=== PATIENT | female | born 1990 | race Caucasian/White ===

== ENCOUNTER 2019-07-26 12:57 | Outpatient (CLI) | payer OTHER ==
[2019-07-26 13:44] LABS: APPEARANCE,URINE CLOUDY; BILIRUBIN,URINE NEGATIVE (NEGATIVE); COLOR,URINE YELLOW; GLUCOSE, URINE 50 mg/dL (NEGATIVE); KETONES,URINE NEGATIVE (NEGATIVE); LEUKOCYTE ESTERASE,URINE NEGATIVE (NEGATIVE); NITRITE,URINE NEGATIVE (NEGATIVE); PROTEIN,URINE 30 mg/dL (NEGATIVE); URINE SPECIFIC GRAVITY 1.027; UROBILINOGEN,URINE NEGATIVE mg/dL (<2.0)
[2019-07-26 13:47] LABS: URINE AMPHETAMINES SCREEN NEGATIVE; URINE BARBITURATES SCREEN NEGATIVE; URINE BENZODIAZEPINES SCREEN NEGATIVE; URINE COCAINE SCREEN NEGATIVE; URINE MARIJUANA (THC) SCREEN NEGATIVE; URINE METHADONE SCREEN NEGATIVE; URINE PHENCYCLIDINE SCREEN NEGATIVE
== END 2019-07-26 13:43 | disposition home or self-care (01) ==
LOC: LC 12:57
PROVIDERS: ATTEND Obstetrics & Gynecology
PROC: 4A1HXCZ Monitoring of Products of Conception, Cardiac Rate, External Approach (ICD-10-PCS; principal; 2019-07-26)
DX: O36.8120 Decreased fetal movements, second trimester, not applicable or unspecified (principal); Z3A.22 22 weeks gestation of pregnancy
CPT/HCPCS: 80307; 81001

== ENCOUNTER 2019-11-24 17:54 | Inpatient (IN) | payer OTHER ==
[2019-11-24] MEDS ORDERED: OXYTOCIN/NORMAL SALINE 20 UNIT/1,000 ML RTUINJ IV PRN (18:34)
[2019-11-24] MEDS ORDERED: DINOPROSTONE 10 MG VAGINAL INSERT.SR PV PRN (18:34)
[2019-11-24 18:56] LABS: ABSOLUTE EOSINOPHILS # (AUTO) 0.1 10^3/uL (0.0-0.6); ABSOLUTE LYMPHOCYTES (AUTO) 1.5 10^3/uL (0.5-4.7); ABSOLUTE MONOCYTES (AUTO) 0.8 10^3/uL (0.1-1.4); ABSOLUTE NEUT (AUTO) 8.2 10^3/uL (1.7-8.2); BASOPHILS % (AUTO) 0.3 % (0-2); EOSINOPHILS % (AUTO) 0.5 % (0-6); HEMATOCRIT 35.6 % (36.0-47.0); HEMOGLOBIN 12.7 g/dL (12.0-15.5); LYMPHOCYTES % (AUTO) 14.4 % (13-45); MEAN CORPUSCULAR HEMOGLOBIN 34.4 pg (27.0-33.4); MEAN CORPUSCULAR HGB CONC 35.7 g/dL (32.0-36.0); MEAN CORPUSCULAR VOLUME 96 fl (80-97); MONOCYTES % (AUTO) 7.8 % (3-13); PLATELET COUNT 199 10^3/uL (150-450); RED CELL DISTRIBUTION WIDTH 12.9 % (11.5-14.0); TOTAL CELLS COUNTED % (AUTO) 100 %; WHITE BLOOD COUNT 10.7 10^3/uL (4.0-10.5)
[2019-11-24] MEDS ORDERED: OXYTOCIN 10 UNIT/ML VIAL ONE (19:30)
[2019-11-24] MEDS ORDERED: MISOPROSTOL 0.2 MG TABLET ONE (19:30)
[2019-11-24] MEDS ORDERED: OXYTOCIN/NORMAL SALINE 20 UNIT/1,000 ML RTUINJ ONE (19:30)
[2019-11-24] MEDS ORDERED: DINOPROSTONE 10 MG VAGINAL INSERT.SR ONE (19:30)
[2019-11-24] MEDS ORDERED: LIDOCAINE 1% INJ-PF (10 MG/ML) 30 ML SDV ONE (19:30)
[2019-11-24] MEDS ORDERED: ZOLPIDEM TARTRATE 5 MG TABLET ONE (21:49)
[2019-11-24 22:56] LABS: APPEARANCE,URINE CLOUDY; BILIRUBIN,URINE NEGATIVE (NEGATIVE); COLOR,URINE YELLOW; GLUCOSE, URINE >=500 mg/dL (NEGATIVE); KETONES,URINE NEGATIVE (NEGATIVE); LEUKOCYTE ESTERASE,URINE TRACE (NEGATIVE); NITRITE,URINE NEGATIVE (NEGATIVE); PROTEIN,URINE 30 mg/dL (NEGATIVE); URINE SPECIFIC GRAVITY 1.022; UROBILINOGEN,URINE NEGATIVE mg/dL (<2.0)
[2019-11-24 23:23] LABS: URINE AMPHETAMINES SCREEN NEGATIVE; URINE BARBITURATES SCREEN NEGATIVE; URINE METHADONE SCREEN NEGATIVE; URINE PHENCYCLIDINE SCREEN NEGATIVE
[2019-11-24 23:24] LABS: URINE COCAINE SCREEN NEGATIVE
[2019-11-24 23:26] LABS: URINE BENZODIAZEPINES SCREEN NEGATIVE
[2019-11-24 23:37] LABS: URINE MARIJUANA (THC) SCREEN NEGATIVE
[2019-11-25] MEDS ORDERED: OXYTOCIN/NORMAL SALINE 20 UNIT/1,000 ML RTUINJ IV PRN ×2 (09:09→23:03)
--- NOTE | 2019-11-25 14:18 | Admission Physical ---
Datetime Report Generated by CPN: 11/25/2019 14:18 CURRENT ADMISSION Chief Complaint: Scheduled Induction of Labor Indication for Induction: Other Indication for Induction- Other: elective Admit Impression : Term, Intrauterine ; No Active Labor Admit Plan: Admit to Unit; Initiate Labor Induction Protocol ALLERGIES Medication Allergies: No Medication Allergies: No Known Allergies (11/24/2019) Latex: No Latex Allergies Food Allergies: none Environmental Allergies: none OBSTETRICAL HISTORY EDC: 11/24/2019 00:00 : 1 Para: 0 Term: 0 : 0 SAB: 0 IAB: 0 Ectopic: 0 Livin Cesareans: 0 VBACs: 0 Multiple Births: 0 Gestational Diabetes: No Rh Sensitization: No Incompetent Cervix: No GHISLAINE: No Infertility: No ART Treatment: No Uterine Anomaly: No IUGR: No Hx Previous C/S: No Macrosomia: No Hx Loss/Stillborn: No PIH: No Hx : No Placenta Previa/Abruption: No Depression/PP Depression: No PTL/PROM: No Post Hemorrhage: No Current Procedures: Ultrasound Obstetrical History Comments: G1-Current SEE RECORDS Alcohol: Yes Alcohol Frequency: Occasional Alcohol Comments: Prior to Marijuana : No Cocaine: No Other Illicit Drugs: No Cigarettes: Never Smoker. [id number] MEDICAL HISTORY Diabetes: No Blood Transfusion: No Pulmonary Disease (Asthma, TB): No Breast Disease: No Hypertension: No Supervisor Telephone Answering Service Surgery: No Heart Disease: No Hosp/Surgery: No Autoimmune Disorder: No Anesthetic Complications: No Kidney Disease: No Abnormal Pap Smear: No Neuro/Epilepsy: No Psychiatric Disorders: No Other Medical Diseases: No Hepatitis/Liver Disease: No Significant Family History: No Varicosities/Phlebitis: No Trauma/Violence : No Thyroid Dysfunction: No INFECTIOUS HISTORY Gonorrhea: No Genital Herpes: No Chlamydia: No Tuberculosis: No Syphilis: No Hepatitis: No HIV/AIDS Exposure: No Rash or Viral Illness: No HPV: No PHYSICAL EXAM General: Normal HEENT: Normal Neurologic: Normal Thyroid: Deferred Heart: Normal Lungs: Normal Breast: Deferred Back: Normal Abdomen: Normal Genitourinary Exam: Normal Extremities: Normal DTRs: Deferred Pelvic Type: Adequate Vital Signs: Reviewed VAGINAL EXAM Dilatation: 0 Effacement: 0 Station: -3 Contraction Comments: q2-5 mins MEMBRANES Membranes: Intact FETUS A EGA: 40.1 Monitoring: External US FHR- Baseline: 130 Variability: Moderate 6-25bpm Accelerations: 15X15 Decelerations: None FHR Category: Category I Estimated Weight (gm): 3200 Presentation: Vertex Admit Comment: at 40w1d admitted for IOL. s/p cervidil, now on pitocin without painful contrations now. GBS negative. called out thinking her water broke. P:actim prom, comgt with dr araya. PLANS FOR LABOR AND DELIVERY Labor and Delivery: Plan Pain Management: Epidural Feeding Preference: Breast Benefit of Breast Feed Discussed: Yes Circumcision: Yes INFORMED CONSENT Assignment: Destiney Araya MD Signature: with User ID: [email or web address] : with User ID: [email or web address]
[2019-11-25] MEDS ORDERED: PROMETHAZINE HCL INJ 25 MG/1 ML VIAL IV ONE (18:04)
[2019-11-25] MEDS ORDERED: MORPHINE SULFATE 10 MG/ML INJ IV ONE (18:04)
[2019-11-25] MEDS ORDERED: MORPHINE SULFATE 10 MG/ML INJ ONE (18:08)
[2019-11-25] MEDS ORDERED: PROMETHAZINE HCL INJ 25 MG/1 ML VIAL ONE (18:08)
[2019-11-25] MEDS: RINGERS SOLUTION,LACTATED 1,000 ML IV PRN ×2 (18:16→23:19)
[2019-11-25] MEDS: ZOLPIDEM TARTRATE 5 MG TABLET PO SCH (18:27)
[2019-11-25] MEDS ORDERED: FENTANYL/BUPIVACAINE/NS/PF 300 MCG/150 ML RTUINJ EPI ONE (20:07)
[2019-11-25] MEDS ORDERED: BUPIVACAINE HCL 0.25 % INJ/PF (2.5 MG/1 ML) 30 ML VIAL ONE (20:07)
[2019-11-25] MEDS ORDERED: EPHEDRINE SULFATE INJ 50 MG/1 ML AMPULE ONE (20:07)
[2019-11-25] MEDS ORDERED: FENTANYL CITRATE INJ/PF 100 MCG/2 ML AMPUL ONE (20:08)
[2019-11-25] MEDS ORDERED: CALCIUM CARBONATE 500 MG TAB.CHEW PO ONE (23:02)
[2019-11-26] MEDS ORDERED: OXYTOCIN/NORMAL SALINE 20 UNIT/1,000 ML RTUINJ ONE ×2 (03:50→21:47)
[2019-11-26] MEDS ORDERED: OXYTOCIN/NORMAL SALINE 20 UNIT/1,000 ML RTUINJ IV PRN (04:12)
[2019-11-26] MEDS: ZOLPIDEM TARTRATE 5 MG TABLET PO SCH (05:49)
[2019-11-26] MEDS ORDERED: PENICILLIN G-K 5 MILLION UNIT VIAL ONE ×3 (05:50→21:49)
[2019-11-26] MEDS ORDERED: PENICILLIN G POTASSIUM 5,000,000 UNIT in DEXTROSE 5%-WATER 100 ML IV ONE (06:00)
[2019-11-26] MEDS ORDERED: FENTANYL/BUPIVACAINE/NS/PF 300 MCG/150 ML RTUINJ EPI ONE ×2 (06:34→21:43)
[2019-11-26] MEDS ORDERED: DIPHENHYDRAMINE HCL 50 MG/ML VIAL ONE (08:02)
[2019-11-26] MEDS ORDERED: CALCIUM CARBONATE 500 MG TAB.CHEW PO ONE (08:11)
[2019-11-26] MEDS ORDERED: DIPHENHYDRAMINE HCL 50 MG/ML VIAL IV ONE (08:14)
[2019-11-26] MEDS: OXYTOCIN/NORMAL SALINE 20 UNIT/1,000 ML RTUINJ IV PRN ×2 (09:06→21:54)
[2019-11-26] MEDS: PENICILLIN G POTASSIUM 2,500,000 UNIT in DEXTROSE 5%-WATER 50 ML IV SCH ×4 (09:55→21:53)
[2019-11-26] MEDS: RINGERS SOLUTION,LACTATED 1,000 ML IV PRN ×2 (12:00→21:54)
[2019-11-26] MEDS ORDERED: FENTANYL CITRATE INJ/PF 100 MCG/2 ML AMPUL ONE (21:40)
[2019-11-27] MEDS: ZOLPIDEM TARTRATE 5 MG TABLET PO SCH (00:41)
[2019-11-27] MEDS ORDERED: DIPHENHYDRAMINE HCL 50 MG/ML VIAL IV ONE (01:00)
[2019-11-27] MEDS ORDERED: DIPHENHYDRAMINE HCL 50 MG/ML VIAL ONE (01:02)
[2019-11-27] MEDS ORDERED: PENICILLIN G-K 5 MILLION UNIT VIAL ONE ×2 (01:58→05:55)
[2019-11-27] MEDS: PENICILLIN G POTASSIUM 2,500,000 UNIT in DEXTROSE 5%-WATER 50 ML IV SCH ×2 (02:01→06:09)
[2019-11-27] MEDS ORDERED: OXYTOCIN/NORMAL SALINE 20 UNIT/1,000 ML RTUINJ ONE (06:38)
[2019-11-27] MEDS ORDERED: MISOPROSTOL 0.2 MG TABLET PR ONE (08:13)
[2019-11-27] MEDS ORDERED: ACETAMINOPHEN 650 MG SUPP.RECT PR PRN (08:32)
[2019-11-27] MEDS ORDERED: PROMETHAZINE HCL INJ 25 MG/1 ML VIAL IV PRN (08:32)
[2019-11-27] MEDS ORDERED: DIBUCAINE 1% OINTMENT 28 GM TP PRN (08:32)
[2019-11-27] MEDS ORDERED: ACETAMINOPHEN WITH CODEINE #3 TABLET PO PRN ×2 (08:32)
[2019-11-27] MEDS ORDERED: GLYCERIN/WITCH HAZEL LEAF 1 EACH MED..WIPE TP PRN (08:32)
[2019-11-27] MEDS ORDERED: DIPH/PERTUSS(ACELL)/TETANUS VAC/PF 0.5 ML SYR (>=10YO) IM PRN (08:32)
[2019-11-27] MEDS ORDERED: BENZOCAINE/MENTHOL AEROSOL SPRAY 56 ML TOP PRN (08:32)
[2019-11-27] MEDS ORDERED: OXYTOCIN/NORMAL SALINE 20 UNIT/1,000 ML RTUINJ IV PRN (08:32)
[2019-11-27] MEDS ORDERED: NA PHOS,M-B/NA PHOS,DI-BA (ADULT) 133 ML ENEMA PR PRN (08:32)
[2019-11-27] MEDS ORDERED: PROMETHAZINE HCL 25 MG SUPP.RECT PR PRN (08:32)
[2019-11-27] MEDS ORDERED: PROMETHAZINE HCL 25 MG TABLET PO PRN (08:32)
[2019-11-27] MEDS ORDERED: DIPHENHYDRAMINE HCL 25 MG CAPSULE PO PRN (08:32)
[2019-11-27] MEDS ORDERED: PSEUDOEPHEDRINE HCL 30 MG TABLET PO PRN (08:32)
[2019-11-27] MEDS ORDERED: MAGNESIUM HYDROXIDE SUSP 30 ML UDCUP PO PRN (08:32)
[2019-11-27] MEDS ORDERED: ZOLPIDEM TARTRATE 5 MG TABLET PO PRN (08:32)
[2019-11-27] MEDS ORDERED: MEASLES,MUMPS&RUBELLA VACC/PF 0.5 ML VIAL SUBCUT PRN (08:32)
[2019-11-27] MEDS ORDERED: METHYLERGONOVINE MALEATE INJ/PF 0.2 MG/1 ML AMPULE ONE (08:35)
[2019-11-27] MEDS ORDERED: BENZOCAINE/MENTHOL AEROSOL SPRAY 56 ML ONE (08:49)
[2019-11-27] MEDS ORDERED: CEFAZOLIN 1 GM/D5W RTU 2 GM/100 ML RTUPB IV ONE (08:51)
[2019-11-27] MEDS ORDERED: CEFAZOLIN 2 GM/D5W RTU 2 GM/50 ML RTUPB IV ONE (09:00)
[2019-11-27] MEDS ORDERED: ACETAMINOPHEN 325 MG TABLET ONE (09:38)
[2019-11-27] MEDS ORDERED: ACETAMINOPHEN 325 MG TABLET PO SCH (10:00)
[2019-11-27] MEDS: IBUPROFEN 800 MG TABLET PO SCH ×3 (10:20→21:39)
[2019-11-27] MEDS: METHYLERGONOVINE MALEATE 0.2 MG TABLET PO SCH ×3 (10:21→21:39)
--- NOTE | 2019-11-27 10:33 | Delivery Summary ---
Del Sum A-C Datetime Report Generated by CPN: 11/27/2019 10:32 DELIVERY PERSONNEL DELIVERY PERSONNEL: [id number] Delivery Doctor:: Soila Mayers MD Labor and Delivery Nurse:: Arabella Bowen RNunit manager convenience stores Nurse:: Dagmar Monet RN Financial Reporting Analyst/APPRENTICE PHOTOGRAPHER: Alice Ramon ST Additional Personnel: : Mireille Bo RN MATERNAL INFORMATION Delivery Anesthesia: Epidural Medications After Delivery: Pitocin Drip 20 Units/1000ml NSS; Methergine 0.2mg IM; Cytotec 1000mcg Per Rectum/Vagina Estimated Blood Loss (ml): 450 Delivery QBL: 450 Maternal Complications: None; Other Complication Details: prolonged rupture of membranes Provider Comments: Called to patients room as she was pushing, completely dilated and +2 station. Patient pushed through a few contractions and delivered a viable male . A double nuchal cord was noted after delivery of the head. Attempted to reduce but not able. Also not able to deliver through because it was too tight. Cord doubly clamped and cut. The shoulders and rest of body delivered easily. crying with oral suctioning and stimulation. Nursery in attendance. Placed skin to skin with Mother. Both infant and Mother stable. LABOR SUMMARY EDC: 11/24/2019 00:00 No. Babies in Womb: 1 Attempted: No Labor Anesthesia: Epidural LABOR INFORMATION Reason for Induction: Other Reason for Induction- Other: Elective Onset of Labor: 11/26/2019 15:52 Complete Dilatation: 11/27/2019 05:16 Cervical Ripening Agents: Cervidil Oxytocin: Induction Group B Beta Strep: NEGATIVE Antibiotics # of Doses: 7 Antibiotics Time of Last Dose: 0600 Name of Antibiotic Given: Penicillin Steroids Given: None Reason Steroids Not Administered: Not Applicable MEMBRANES Membranes Rupture Method: Spontaneous Rupture of Membranes: 11/25/2019 14:15 Length of Rupture (hr): 41.82 Amniotic Fluid Color: Clear Amniotic Fluid Amount: Scant Amniotic Fluid Odor: Normal STAGES OF LABOR Stage 1 hr: 13 Stage 1 min: 24 Stage 2 hr: 2 Stage 2 min: 48 Stage 3 hr: 0 Stage 3 min: 7 Total Time in Labor hr: 16 Total Time in Labor min: 19 VAGINAL DELIVERY Episiotomy: None Laceration #1: Perineal Laceration Extension #1: Second Degree Laceration Repair: Yes Laceration Repair Note: Repaired with 2-0 chromic in a layered closure Sponge Count Correct: Yes Sharps Count Correct: Yes CSECTION DELIVERY Primary Indication: N/A Secondary Indication: N/A CSection Incidence: N/A Labor: N/A Elective: N/A CSection Incision: N/A BABY A INFORMATION Delivery Date/Time: 11/27/2019 08:04 Method of Delivery: Vaginal Nurse Controlled Delivery: No Born in Route : No : N/A Forceps: N/A Vacuum Extraction: N/A Shoulder Dystocia : No PRESENTATION/POSITION BABY A Presentation: Cephalic Cephalic Presentation: Vertex Vertex Position: Right Occipital Anterior Breech Presentation: N/A PLACENTA INFORMATION BABY A Placenta Delivery Time : 11/27/2019 08:11 Placenta Method of Delivery: Expressed Placenta Status: Delivered SCORES BABY A Heart Rate 1 min: >100 bpm Resp Effort 1 min: Good Cry Reflex Irritability 1 min: Cough or Sneeze or Pulls Away Muscle Tone 1 min: Active Motion Color 1 min: Blue/Pale Resuscitation Effort 1 min: Tactile Stimulation SCORE 1 MIN: 8 Heart Rate 5 min: >100 bpm Resp Effort 5 min: Good Cry Reflex Irritability 5 min: Cough or Sneeze or Pulls Away Muscle Tone 5 min: Active Motion Color 5 min: Blue/Pale Resuscitation Effort 5 min: Tactile Stimulation SCORE 5 MIN: 8 INFANT INFORMATION BABY A Gestational Age at Delivery: 40.3 Gestational Status: Full Term- 39- 40.6 Weeks Infant Outcome : Liveborn Condition : Stable Sex: Male IDENTIFICATION BABY A Infant Verification Date/Time: 11/27/2019 08:20 ID Band Number: [id number] Mother's Name Verified: Yes RN Verifying : B Baidy, RN Additional Verifying Personnel: T Yovani, RN WEIGHT/LENGTH BABY A Birthweight (gm): 3514 Infant Weight (lb): 7 Weight (oz): 12 Infant Length (in): 20.50 Length (cm): 52.07 CORD INFORMATION BABY A No. Cord Vessels: 3 Nuchal Cord : Around Neck x2, Tight Cord Blood Taken: Yes-For Eval (Mom's Blood Type - or O+) Suction: None ASSESSMENT BABY A Complications: None Physical Findings at Delivery: Within Normal Limits Respirations: Appears Normal Skin to Skin: Yes Skin to Skin Time (min): 60 Superintendent Refuse Disposal/ALS Called : No Transferred To: Remains with Mother BABY B INFORMATION : N/A SIGNATURES Signature: with User ID: [email or web address] : with User ID: [email or web address] : I was personally available for consultation and serving as supervising physician for the MLP.
[2019-11-27] MEDS: PRENATAL VITAMIN W DHA CAPSULE PO SCH (10:39)
[2019-11-27] MEDS: SENNOSIDES/DOCUSATE 8.6-50 MG 1 EACH TABLET PO SCH (10:40)
[2019-11-27] MEDS: FAMOTIDINE 20 MG TABLET PO SCH ×2 (10:40→21:39)
[2019-11-27] MEDS: FERROUS SULFATE 325 MG TABLET PO SCH ×2 (10:40→17:43)
[2019-11-27] MEDS: DOCUSATE SODIUM 100 MG CAPSULE PO SCH ×2 (10:40→17:43)
[2019-11-27] MEDS ORDERED: ACETAMINOPHEN 325 MG TABLET PO PRN (12:29)
[2019-11-27] MEDS ORDERED: METHYLERGONOVINE MALEATE 0.2 MG TABLET ONE ×2 (15:19→20:51)
[2019-11-28] MEDS ORDERED: METHYLERGONOVINE MALEATE 0.2 MG TABLET ONE ×3 (02:29→14:09)
[2019-11-28] MEDS: METHYLERGONOVINE MALEATE 0.2 MG TABLET PO SCH ×3 (02:38→14:11)
[2019-11-28] MEDS: IBUPROFEN 800 MG TABLET PO SCH ×3 (06:01→21:50)
[2019-11-28 06:43] LABS: HEMATOCRIT 29.3 % (36.0-47.0); HEMOGLOBIN 10.3 g/dL (12.0-15.5); MEAN CORPUSCULAR HEMOGLOBIN 34.2 pg (27.0-33.4); MEAN CORPUSCULAR VOLUME 98 fl (80-97); PLATELET COUNT 149 10^3/uL (150-450); RED BLOOD COUNT 2.99 10^6/uL (3.72-5.28); RED CELL DISTRIBUTION WIDTH 13.3 % (11.5-14.0); WHITE BLOOD COUNT 14.2 10^3/uL (4.0-10.5)
[2019-11-28] MEDS: PRENATAL VITAMIN W DHA CAPSULE PO SCH (09:51)
[2019-11-28] MEDS: FERROUS SULFATE 325 MG TABLET PO SCH ×2 (09:51→17:39)
[2019-11-28] MEDS: SENNOSIDES/DOCUSATE 8.6-50 MG 1 EACH TABLET PO SCH (09:51)
[2019-11-28] MEDS: DOCUSATE SODIUM 100 MG CAPSULE PO SCH ×2 (09:51→17:39)
[2019-11-28] MEDS: FAMOTIDINE 20 MG TABLET PO SCH ×2 (09:52→21:51)
--- NOTE | 2019-11-28 12:35 | PDOC PROGRESS REPORT ---
Subjective-OB Progress Note for:: 11/28/19 Subjective: 29yo G2 now P1 s/p ppd1. Pt is ambulating, voiding and without difficulty, reports pain well controlled with medication, no concerns at this time. Physical Exam (OB) Vital Signs: Temp Pulse Resp BP Pulse Ox 97.4 F 80 18 99/59 L 100 11/28/19 11:05 11/28/19 11:05 11/28/19 11:05 11/28/19 11:05 11/28/19 11:05 Intake & Output 11/27/19 11/28/19 11/29/19 06:59 06:59 06:59 Intake Total 2076 1800 Balance 2076 1800 - General General Appearance: Appears well In distress: None - PIH/Pre-Eclampsia Headache: Absent Epigastric Pain: No Visual Changes: No - Episiotomy/Laceration Site Condition: Well Approximated - Lochia Lochia Amount: Scant < 10 ml Lochia Color: Rubra/Red - Abdomen Description: Soft Hernia Present: No Fundal Description: Firm, Midline Fundal Height: u/u - u/2 - Respiratory Respiratory Status: No respiratory distress - Extremities Upper extremity: Normal inspection Lower extremities: Normal inspection - Neurological Cognition: Normal Orientation: AAOx4 - Psychological Associated symptoms: Normal affect, Normal mood Objective-Diagnostic Laboratory: 11/28/19 06:20 11/28/19 06:20 WBC 14.2 H RBC 2.99 L Hgb 10.3 L Hct 29.3 L MCV 98 H MCH 34.2 H MCHC 35.0 RDW 13.3 Plt Count 149 L Assessment and Plan(PN) - Assessment and Plan (1) Acute blood loss anemia Is this a current diagnosis for this admission?: Yes Plan: increase dietary iron and feso4 bid (2) Delivery normal Is this a current diagnosis for this admission?: Yes Plan: routine pp care (3) Encounter for elective induction of labor Is this a current diagnosis for this admission?: Yes Plan: delivered (4) Perineal laceration during delivery, delivered Is this a current diagnosis for this admission?: Yes Plan: continue monitoring for s/s of pre e infection - Time Spent with Patient Time with patient: Less than 15 minutes Medications reviewed and adjusted accordingly: Yes - Disposition Anticipated Discharge: Home Within: within 24 hours
[2019-11-29] MEDS: IBUPROFEN 800 MG TABLET PO SCH (05:55)
[2019-11-29 08:07] VITALS: BP 100/55
--- NOTE | 2019-11-29 09:11 | PDOC DISCHARGE SUMMARY ---
Impression - Admit/DC Date/PCP Admission Date/Primary Care Provider: 11/24/19 17:54 Discharge Date: 11/29/19 - PP Day #2, doing well, no complaints, - Additional Information Resuscitation Status: Full Code Discharge Diet: As Tolerated, Regular Discharge Activity: Activity As Tolerated, Balance Activity w/Rest, No Lifting Over 10 Pounds, Pelvic Rest, No tub bath, Walk Frequently Prescriptions: Docusate Sodium [Colace 100 mg Capsule] 100 mg PO BID #60 capsule Ferrous Sulfate [Feosol 325 mg Tablet] 325 mg PO BID #60 tablet Ibuprofen [Motrin 800 mg Tablet] 800 mg PO Q8HP PRN #20 tablet PRN Reason: Abdominal Cramping Home Medications: Vit No.130/Iron/Folic [ Tablet] 1 each PO DAILY 07/26/19 Docusate Sodium [Colace 100 mg Capsule] 100 mg PO BID #60 capsule 11/28/19 Ferrous Sulfate [Feosol 325 mg Tablet] 325 mg PO BID #60 tablet 11/28/19 Ibuprofen [Motrin 800 mg Tablet] 800 mg PO Q8HP PRN #20 tablet 11/28/19 HPI Reason(s) for Admission: Onset of Labor Intrapartum Procedure(s): Spontaneous Vaginal Delivery Complication(s): Laceration-Perineal, Hemorrhage-Uterine Atony, Antibiotics Laceration-Degree: 1st Results Laboratory Results: WBC 14.2 10^3/uL (4.0-10.5) H 11/28/19 06:20 RBC 2.99 10^6/uL (3.72-5.28) L 11/28/19 06:20 Hgb 10.3 g/dL (12.0-15.5) L 11/28/19 06:20 Hct 29.3 % (36.0-47.0) L 11/28/19 06:20 MCV 98 fl (80-97) H 11/28/19 06:20 MCH 34.2 pg (27.0-33.4) H 11/28/19 06:20 MCHC 35.0 g/dL (32.0-36.0) 11/28/19 06:20 RDW 13.3 % (11.5-14.0) 11/28/19 06:20 Plt Count 149 10^3/uL (150-450) L 11/28/19 06:20 Lymph % (Auto) 14.4 % (13-45) 11/24/19 18:45 Mercer % (Auto) 7.8 % (3-13) 11/24/19 18:45 Eos % (Auto) 0.5 % (0-6) 11/24/19 18:45 Baso % (Auto) 0.3 % (0-2) 11/24/19 18:45 Absolute Neuts (auto) 8.2 10^3/uL (1.7-8.2) 11/24/19 18:45 Absolute Lymphs (auto) 1.5 10^3/uL (0.5-4.7) 11/24/19 18:45 Absolute Monos (auto) 0.8 10^3/uL (0.1-1.4) 11/24/19 18:45 Absolute Eos (auto) 0.1 10^3/uL (0.0-0.6) 11/24/19 18:45 Absolute Basos (auto) 0.0 10^3/uL (0.0-0.2) 11/24/19 18:45 Seg Neutrophils % 77.0 % (42-78) 11/24/19 18:45 POC Glucose 105 mg/dL (70-110) 11/25/19 02:07 Urine Color YELLOW 11/24/19 18:08 Urine Appearance CLOUDY 11/24/19 18:08 Urine pH 6.0 (5.0-9.0) 11/24/19 18:08 Ur Specific Conrad 1.022 11/24/19 18:08 Urine Protein 30 mg/dL (NEGATIVE) H 11/24/19 18:08 Urine Glucose (UA) >=500 mg/dL (NEGATIVE) H 11/24/19 18:08 Urine Ketones NEGATIVE mg/dL (NEGATIVE) 11/24/19 18:08 Urine Blood NEGATIVE (NEGATIVE) 11/24/19 18:08 Urine Nitrite NEGATIVE (NEGATIVE) 11/24/19 18:08 Urine Bilirubin NEGATIVE (NEGATIVE) 11/24/19 18:08 Urine Urobilinogen NEGATIVE mg/dL (<2.0) 11/24/19 18:08 Ur Leukocyte Esterase TRACE (NEGATIVE) H 11/24/19 18:08 Urine Ascorbic Acid 40 (NEGATIVE) H 11/24/19 18:08 Membranes Rupture POSITIVE (NEGATIVE) H 11/25/19 14:28 Urine Opiates Screen NEGATIVE 11/24/19 18:08 Urine Methadone Screen NEGATIVE 11/24/19 18:08 Ur Barbiturates Screen NEGATIVE 11/24/19 18:08 Ur Phencyclidine Scrn NEGATIVE 11/24/19 18:08 Ur Amphetamines Screen NEGATIVE 11/24/19 18:08 U Benzodiazepines Scrn NEGATIVE 11/24/19 18:08 Urine Cocaine Screen NEGATIVE 11/24/19 18:08 U Marijuana (THC) Screen NEGATIVE 11/24/19 18:08 RPR NONREACTIVE (NONREACTIVE) 11/24/19 18:45 Blood Type O POSITIVE 11/24/19 18:45 Antibody Screen NEGATIVE 11/24/19 18:45 Plan Plan of Treatment: d/c home, f/up with [facility] in 4 wks for PP check Time Spent: Less than 30 Minutes
[2019-11-29] MEDS: SENNOSIDES/DOCUSATE 8.6-50 MG 1 EACH TABLET PO SCH (10:04)
[2019-11-29] MEDS: FERROUS SULFATE 325 MG TABLET PO SCH (10:04)
[2019-11-29] MEDS: PRENATAL VITAMIN W DHA CAPSULE PO SCH (10:04)
[2019-11-29] MEDS: DOCUSATE SODIUM 100 MG CAPSULE PO SCH (10:04)
[2019-11-29] MEDS: FAMOTIDINE 20 MG TABLET PO SCH (10:04)
== END 2019-11-29 11:13 | disposition home or self-care (01) | DRG 806 ==
LOC: LR 17:54 → 2S 11-27 10:18
PROVIDERS: ADMIT Obstetrics & Gynecology Gynecology; ATTEND Obstetrics & Gynecology Gynecology
PROC: 10E0XZZ Delivery of Products of Conception, External Approach (ICD-10-PCS; principal; 2019-11-27)
PROC: 0KQM0ZZ Repair Perineum Muscle, Open Approach (ICD-10-PCS; 2019-11-27)
DX: O42.92 Full-term premature rupture of membranes, unspecified as to length of time between rupture and onset of labor (principal); O72.1 Other immediate postpartum hemorrhage; Z37.0 Single live birth; D62 Acute posthemorrhagic anemia; O99.02 Anemia complicating childbirth; O69.1XX0 Labor and delivery complicated by cord around neck, with compression, not applicable or unspecified; O70.1 Second degree perineal laceration during delivery; Z3A.40 40 weeks gestation of pregnancy
CPT/HCPCS: 36415; 80307; 81005; 82962; 84112; 85025; 85027; 86592; 86850; 86900; 86901; C1758; J0690; J1200; J2210; J2270; J2540; J2550; J2590; J3010; J3490; J7060